=== PATIENT | female | born 1970 | race Caucasian/White ===

== ENCOUNTER 2018-04-04 21:15 | Emergency (ER) | payer MEDICAID ==
[~2018-04-04] VITALS: Ht 170.2 cm; Wt 72.7 kg
[~2018-04-04 21:15] MED LIST: ALBU8HFA PO; AMPH20TA20 PO; BAC10T PO; CLON-371 PO; CLON-529 PO; CYCL-1 PO; DIPH-423 PO; FURO-150 PO; GABA300C PO; GABA600T2 PO; IBUP-1986 PO; MILK200C4 PO; OMEP-84 PO; OMEPRAZOLE PO; POTA10TA19 PO; TRAM50TA2 PO
[2018-04-04 22:26] VITALS: BP 108/68
[2018-04-04] MEDS ORDERED: ibuprofen tablet 400 MG TABLET PO ONE (22:55)
[2018-04-04] MEDS ORDERED: LORazepam 1 MG tablet PO ONE (22:55)
[2018-04-04] MEDS ORDERED: LIDOcaine 1.5% w/epinephrine 1:200,000 5ml ampul IJ ONE (23:00)
[2018-04-04] MEDS ORDERED: LIDOcaine 1% w/epiNEPHrine 1:200,000 30ml vial IJ ONE (23:05)
[2018-04-04] MEDS ORDERED: SULF1TAB49 PO (23:20)
== END 2018-04-04 23:57 | disposition home or self-care (01) ==
LOC: ER 21:16
DX: L02.413 Cutaneous abscess of right upper limb (principal); L02.415 Cutaneous abscess of right lower limb; G89.29 Other chronic pain; F11.90 Opioid use, unspecified, uncomplicated; F17.200 Nicotine dependence, unspecified, uncomplicated; Z88.6 Allergy status to analgesic agent; Z88.8 Allergy status to other drugs, medicaments and biological substances; Z79.899 Other long term (current) drug therapy
CPT/HCPCS: 10061; 99284; J3490; 10060; 99283

== ENCOUNTER 2019-02-14 16:31 | Emergency (ER) | payer MEDICAID ==
[~2019-02-14] VITALS: Ht 170.2 cm; Wt 60.8 kg
[~2019-02-14 16:31] MED LIST changes: +GABA600T13 PO; -GABA600T2 PO; +LIDOcaine 1% W/epiNEPHrine 1:100,000 20ml vial ONE
--- NOTE | 2019-02-14 16:50 | NUR ---
Maylin carl in EDM - 02/14/19 at 1651 by LAURENT PT was brought from triage. Traci riddle to room patient began crying. When asked what was wrong, pt stated that she "made a stupid mistake" pt is still crying.
--- NOTE | 2019-02-14 17:04 | NUR ---
SET UP FOR I/D
[2019-02-14] MEDS ORDERED: CEPH-572 PO (17:37)
[2019-02-14] MEDS ORDERED: SULF1TAB49 PO (17:37)
[2019-02-14] MEDS ORDERED: IBUP-1985 PO (17:37)
[2019-02-14 17:55] VITALS: BP 117/71
== END 2019-02-14 17:56 | disposition home or self-care (01) ==
LOC: ER 16:31
DX: G89.29 Other chronic pain (principal); F11.90 Opioid use, unspecified, uncomplicated; Z88.5 Allergy status to narcotic agent; Z86.14 Personal history of Methicillin resistant Staphylococcus aureus infection; Z88.8 Allergy status to other drugs, medicaments and biological substances; Z79.2 Long term (current) use of antibiotics; Z79.899 Other long term (current) drug therapy
CPT/HCPCS: 10060; 99283

== ENCOUNTER 2019-02-23 22:29 | Emergency (ER) | payer MEDICAID ==
[~2019-02-23] VITALS: Ht 170.2 cm; Wt 52.3 kg
[~2019-02-23 22:29] MED LIST changes: +IBUP-1985 PO; -LIDOcaine 1% W/epiNEPHrine 1:100,000 20ml vial ONE
== END 2019-02-24 00:21 | disposition home or self-care (01) ==
LOC: ER 22:29
DX: L02.31 Cutaneous abscess of buttock (principal); G89.29 Other chronic pain; F11.90 Opioid use, unspecified, uncomplicated; Z86.14 Personal history of Methicillin resistant Staphylococcus aureus infection; Z88.6 Allergy status to analgesic agent; Z88.5 Allergy status to narcotic agent; Z88.8 Allergy status to other drugs, medicaments and biological substances; Z79.899 Other long term (current) drug therapy
CPT/HCPCS: 99281

== ENCOUNTER 2019-04-05 04:34 | Emergency (ER) | payer MEDICAID ==
[~2019-04-05] VITALS: Ht 170.2 cm; Wt 63.6 kg
[2019-04-05] MEDS ORDERED: TOLN30CR TOP (04:58)
[2019-04-05] MEDS ORDERED: OMEP-297 PO (04:58)
[2019-04-05] MEDS ORDERED: ibuprofen tablet 400 MG TABLET PO ONE (05:00)
[2019-04-05 05:08] VITALS: BP 115/73
== END 2019-04-05 05:12 | disposition home or self-care (01) ==
LOC: ER 04:34
DX: B35.3 Tinea pedis (principal); G89.29 Other chronic pain; K21.9 Gastro-esophageal reflux disease without esophagitis; F11.90 Opioid use, unspecified, uncomplicated; Z86.14 Personal history of Methicillin resistant Staphylococcus aureus infection; Z88.5 Allergy status to narcotic agent; Z88.6 Allergy status to analgesic agent; Z88.8 Allergy status to other drugs, medicaments and biological substances; Z79.899 Other long term (current) drug therapy
CPT/HCPCS: 99282

== ENCOUNTER 2019-11-24 11:41 | Inpatient (IN) | payer MEDICAID ==
[~2019-11-24] VITALS: Ht 170.2 cm; Wt 63.6 kg
[~2019-11-24 11:41] MED LIST changes: +OMEP20CA15 PO; +TOLN30CR TOP
--- NOTE | 2019-11-24 12:00 | NUR ---
assisted pt into gown. small baggie of brown paste like substance fell out of bra. baggie given to [employer] officer
[2019-11-24] MEDS ORDERED: normal saline 1000ML IV soln IVB ONE (12:05)
[2019-11-24 13:07] LABS: HEMOGLOBIN 11.1 g/dl (12.0-16.0); MEAN PLATELET VOLUME 8.9 FL (7.4-10.4); MONOCYTES # (AUTO) 0.4 X10'3 (0-0.9)
[2019-11-24 13:08] LABS: BASOPHILS # (AUTO) 0.1 X10'3 (0-0.2); BASOPHILS % (AUTO) 0.3 % (0-1); EOSINOPHILS % (AUTO) 0.2 % (0-6); HEMATOCRIT 33.1 % (35.0-45.0); LYMPHOCYTES # (AUTO) 0.8 X10'3 (1.1-4.8); LYMPHOCYTES % (AUTO) 4.4 % (21-51); MEAN CORPUSCULAR HGB CONC 33.5 g/dL (33.0-36.5); MEAN CORPUSCULAR VOLUME 92.7 FL (78-98); NEUTROPHILS # (AUTO) 18.2 X10'3 (1.8-7.7); NEUTROPHILS % (AUTO) 93.1 % (42-75); PLATELET COUNT 172 X10'3 (140-440); RED BLOOD COUNT 3.57 X10'6 (4.20-5.60); WHITE BLOOD COUNT 19.5 X10'3 (4.5-11.0)
[2019-11-24] MEDS ORDERED: LORazepam 2 mg/ml vial IV ONE (13:15)
[2019-11-24 13:20] LABS: ALANINE AMINOTRANSFERASE 13 U/L (12-78); ALBUMIN 3.7 G/DL (3.4-5.0); ALBUMIN/GLOBULIN RATIO 0.8 (1.1-1.5); ALKALINE PHOSPHATASE 123 IU/L (46-116); ANION GAP 7 (8-16); ASPARTATE AMINO TRANSFERASE 21 U/L (10-37); BLOOD UREA NITROGEN 17 MG/DL (7-18); BUN/CREATININE RATIO 19.1 (6.6-38.0); CHLORIDE 103 MMOL/L (99-107); CREATININE 0.89 MG/DL (0.40-0.90); GLUCOSE 97 MG/DL (70-104); POTASSIUM 4.5 MMOL/L (3.5-5.1); SODIUM 140 MMOL/L (135-145); TOTAL CARBON DIOXIDE 29.7 MMOL/L (24-32); TOTAL PROTEIN 8.2 G/DL (6.4-8.2); eGFR 67 ML/MIN
[2019-11-24 13:48] LABS: PLATELET ESTIMATE NORMAL; TOTAL CELLS COUNTED 100; TOXIC VACUOLATION 2+
[2019-11-24] MEDS ORDERED: normal saline 1000ML IV soln IV ONE (14:00)
[2019-11-24] MEDS ORDERED: vancomycin/NS 1 GM ADD-VANTAGE 250 ML IV ONE (14:15)
[2019-11-24] MEDS ORDERED: ibuprofen 100 MG/5 ML oral susp PO ONE (14:50)
[2019-11-24] MEDS ORDERED: piperacillin/tazo 3.375gm/50ml 50 ML IV ONE (15:40)
[2019-11-24] MEDS ORDERED: OMEP40CA13 PO (15:55)
[2019-11-24] MEDS ORDERED: SPIR100T5 PO (16:05)
[2019-11-24] MEDS ORDERED: FURO40TA4 PO (16:05)
[2019-11-24] MEDS ORDERED: DULO60CA65 PO (16:05)
[2019-11-24 16:10] LABS: CLARITY,URINE CLEAR (Clear); COLOR,URINE YELLOW (Yellow); GLUCOSE, URINE NEGATIVE (Neg); KETONES,URINE TRACE mg/dl (Neg); LEUKOCYTE ESTERASE ,URINE NEGATIVE (Neg); NITRITES, URINE NEGATIVE (Neg); OCCULT BLOOD,URINE NEGATIVE (Neg); PROTEIN,URINE NEGATIVE (Neg); UROBILINOGEN,URINE >=8.0 E.U/dL (0.2-1.0)
[2019-11-24 16:11] LABS: UA COLLECTION TYPE FOLEY CATH
[2019-11-24] MEDS ORDERED: magnesium Cl slow-release 64mg tablet PO PRN (16:25)
[2019-11-24] MEDS ORDERED: ondansetron/PF 4mg/2ml inj IV PRN (16:25)
[2019-11-24] MEDS ORDERED: magnesium 2GM in 50ml NS 50 ML IV PRN (16:25)
[2019-11-24] MEDS ORDERED: potassium Cl 20 mEq SR tablet PO PRN (16:25)
[2019-11-24] MEDS ORDERED: LORazepam 2 mg/ml vial IV PRN (16:25)
[2019-11-24] MEDS ORDERED: LORazepam 1 MG tablet PO PRN (16:25)
[2019-11-24] MEDS ORDERED: magnesium 4gm in 100ml NS 100 ML IV PRN (16:25)
[2019-11-24] MEDS ORDERED: acetaminophen 325mg tablet PO PRN (16:25)
[2019-11-24] MEDS ORDERED: potassium CL 10mEq/100ml bag 100 ML IV PRN ×2 (16:25)
[2019-11-24] MEDS ORDERED: dextrose 50%-water 50ml dispensing syringe IV PRN (16:25)
[2019-11-24] MEDS: normal saline 1000ml 1,000 ML IV SCH (18:01)
[2019-11-24 19:02] LABS: URINE AMPHETAMINE SCREEN POSITIVE (Neg); URINE BARBITUATE SCREEN NEGATIVE (Neg); URINE BENZODIAZEPINES SCREEN NEGATIVE (Neg); URINE CANNABINOID SCREEN NEGATIVE (Neg); URINE COCAINE SCREEN NEGATIVE (Neg); URINE METHADONE SCREEN POSITIVE (Neg); URINE OPIATE SCREEN POSITIVE (Neg); URINE PHENCYCLIDINE SCREEN NEGATIVE (Neg)
[2019-11-24 19:15] VITALS: BP 98/61
[2019-11-24] MEDS: heparin, porcine 5000 units/ml vial SQ SCH (19:40)
[2019-11-24] MEDS: K and/or MAG REPLACEMENT MC SCH (20:55)
[2019-11-24] MEDS ORDERED: temazepam 15mg capsule PO PRN (21:00)
[2019-11-24 22:00] VITALS: BP_SYST 123; BP_SYST 98; BP_DIAS 61; BP_DIAS 79
[2019-11-25] MEDS: piperacillin/tazo 3.375gm/50ml 50 ML IV SCH ×4 (00:13→18:43)
[2019-11-25] MEDS: normal saline 1000ml 1,000 ML IV SCH ×2 (00:14→09:14)
[2019-11-25 02:00] VITALS: BP 111/78
[2019-11-25] MEDS: vancomycin/NS 1 GM ADD-VANTAGE 250 ML IV SCH ×2 (04:13→16:25)
--- NOTE | 2019-11-25 05:11 | NUR ---
pt awake stating she wants something to drink, pt A&O to person and place, pt oriented to why she is in the hospital, pt educated about NPO status, IV fluids, ABX, and seo catheter. Pt unable to comprehend education and orientation, pt continued to ask for a drink, pt provided swabs for dry mouth. pt displays poor coping abilities.
[2019-11-25 06:00] VITALS: BP 123/67
[2019-11-25 06:14] LABS: ALANINE AMINOTRANSFERASE 22 U/L (12-78); ALBUMIN 2.9 G/DL (3.4-5.0); ALBUMIN/GLOBULIN RATIO 0.7 (1.1-1.5); ALKALINE PHOSPHATASE 98 IU/L (46-116); ANION GAP 9 (8-16); ASPARTATE AMINO TRANSFERASE 73 U/L (10-37); BILIRUBIN,TOTAL 1.2 MG/DL (0.1-1.0); BLOOD UREA NITROGEN 14 MG/DL (7-18); CALCIUM 8.1 MG/DL (8.5-10.1); CHLORIDE 105 MMOL/L (99-107); GLUCOSE 65 MG/DL (70-104); MAGNESIUM 1.7 MG/DL (1.5-2.4); POTASSIUM 3.6 MMOL/L (3.5-5.1); SODIUM 137 MMOL/L (135-145); TOTAL CARBON DIOXIDE 23.3 MMOL/L (24-32); TOTAL PROTEIN 6.9 G/DL (6.4-8.2); eGFR 88 ML/MIN
--- NOTE | 2019-11-25 06:18 | NUR ---
Problems reprioritized. Patient report given, questions answered & plan of care reviewed with Jordyn JEFFERSON.
--- NOTE | 2019-11-25 07:52 | NUR ---
DR. SCHROEDER PAGED: PAGER ID: [phone] MESSAGE: [id number]: STRAIN - FYI (+) blood cultures aerobic, L arm, gram + cocci pairs/chains Nurse Jordyn [id number]
[2019-11-25] MEDS: K and/or MAG REPLACEMENT MC SCH ×2 (08:00→20:00)
[2019-11-25 09:06] LABS: BASOPHILS % (AUTO) 0.2 % (0-1); EOSINOPHILS % (AUTO) 0.1 % (0-6); HEMATOCRIT 32.7 % (35.0-45.0); HEMOGLOBIN 10.9 g/dl (12.0-16.0); LYMPHOCYTES # (AUTO) 1.4 X10'3 (1.1-4.8); LYMPHOCYTES % (AUTO) 9.8 % (21-51); MEAN CORPUSCULAR HEMOGLOBIN 31.9 PG (27.0-31.0); MEAN CORPUSCULAR HGB CONC 33.4 g/dL (33.0-36.5); MEAN CORPUSCULAR VOLUME 95.5 FL (78-98); MEAN PLATELET VOLUME 9.4 FL (7.4-10.4); MONOCYTES # (AUTO) 0.5 X10'3 (0-0.9); MONOCYTES % (AUTO) 3.6 % (2-12); NEUTROPHILS # (AUTO) 12.5 X10'3 (1.8-7.7); NEUTROPHILS % (AUTO) 86.3 % (42-75); PLATELET COUNT 120 X10'3 (140-440); RED BLOOD COUNT 3.42 X10'6 (4.20-5.60); WHITE BLOOD COUNT 14.4 X10'3 (4.5-11.0)
[2019-11-25] MEDS: heparin, porcine 5000 units/ml vial SQ SCH ×2 (09:17→20:39)
--- NOTE | 2019-11-25 09:50 | NUR ---
Pt with a low Tk of 12. Per physical assessment pt with RLE 3+ and LLE 1+ edema however skin intact. No nutrition intervention warranted at this time. Will continue to follow. Addendum: 11/25/19 at [address] Amended: Links added.
--- NOTE | 2019-11-25 10:51 | NUR ---
Page: To Juan R ROLLE PAGER ID: [phone] MESSAGE: Modesto Christopher [id number] [employer] [address] would like you to contact Dr. De Guzman regarding the Covid Lab order, Also she is now awake and wishes to leave the hospital.
[2019-11-25 11:00] VITALS: BP 123/67
[2019-11-25] MEDS: dextrose 5%-normal saline 1,000 ML IV SCH ×2 (12:10→20:39)
[2019-11-25 13:13] LABS: ETHANOL < 0.010 GM/DL (0.0-0.010)
[2019-11-25 13:52] LABS: HIV ANTIBODY 1&2 RAPID NON-REACTIVE (Neg)
[2019-11-25 15:00] VITALS: BP 113/71
[2019-11-25] MEDS ORDERED: thiamine 100mg/ml 2ml inj. IV ONE (15:50)
[2019-11-25] MEDS ORDERED: folic acid 1mg tablet PO ONE (15:50)
[2019-11-25] MEDS ORDERED: LORazepam 2 mg/ml vial IV PRN (15:55)
[2019-11-25] MEDS ORDERED: haloperidol lactate 5mg/ml inj IM PRN (15:55)
[2019-11-25] MEDS ORDERED: haloperidol 5mg tablet PO PRN (15:55)
[2019-11-25 16:19] LABS: PREOP URINE HCG NEGATIVE (NEGATIVE)
[2019-11-25] MEDS ORDERED: thiamine inj. 100 MG in normal saline 100ml IV soln 99 ML IV ONE (16:30)
--- NOTE | 2019-11-25 18:15 | NUR ---
Patient in room PCU 3025. I have received report from LI Cobb and had the opportunity to ask questions and assume patient care.
[2019-11-25] MEDS: lactobacillus rhamnosus 10,000 MMU CELLS/CAPSULE PO SCH (20:40)
--- NOTE | 2019-11-25 21:06 | NUR ---
Sent to [facility] PAGER ID: [phone] MESSAGE: [id number] Candi Angeles: Sorry to bother you , patient is demanding to see you about her diet. She wants to eat. If you would like to please come explain to her. She is cursing at me very upset. Thank you, Pat [phone]
[2019-11-25 22:10] VITALS: BP 117/73
[2019-11-26 01:41] VITALS: BP 106/79
[2019-11-26] MEDS: piperacillin/tazo 3.375gm/50ml 50 ML IV SCH ×3 (01:45→16:15)
[2019-11-26] MEDS ORDERED: VANCOMYCIN LEVEL IV ONE (03:30)
[2019-11-26 04:01] LABS: ALANINE AMINOTRANSFERASE 21 U/L (12-78); ALBUMIN 2.2 G/DL (3.4-5.0); ALBUMIN/GLOBULIN RATIO 0.5 (1.1-1.5); ALKALINE PHOSPHATASE 78 IU/L (46-116); ANION GAP 6 (8-16); ASPARTATE AMINO TRANSFERASE 57 U/L (10-37); BASOPHILS % (AUTO) 0.1 % (0-1); BILIRUBIN,TOTAL 0.8 MG/DL (0.1-1.0); BLOOD UREA NITROGEN 10 MG/DL (7-18); BUN/CREATININE RATIO 16.4 (6.6-38.0); CALCIUM 7.8 MG/DL (8.5-10.1); CHLORIDE 105 MMOL/L (99-107); CREATININE 0.61 MG/DL (0.40-0.90); EOSINOPHILS # (AUTO) 0.1 X10'3 (0-0.9); EOSINOPHILS % (AUTO) 0.6 % (0-6); GLUCOSE 110 MG/DL (70-104); HEMATOCRIT 28.8 % (35.0-45.0); HEMOGLOBIN 9.8 g/dl (12.0-16.0); LYMPHOCYTES # (AUTO) 1.4 X10'3 (1.1-4.8); LYMPHOCYTES % (AUTO) 15.2 % (21-51); MAGNESIUM 1.6 MG/DL (1.5-2.4); MEAN CORPUSCULAR HEMOGLOBIN 31.8 PG (27.0-31.0); MEAN CORPUSCULAR VOLUME 93.5 FL (78-98); MEAN PLATELET VOLUME 9.1 FL (7.4-10.4); MONOCYTES # (AUTO) 0.5 X10'3 (0-0.9); MONOCYTES % (AUTO) 5.2 % (2-12); NEUTROPHILS # (AUTO) 7.2 X10'3 (1.8-7.7); NEUTROPHILS % (AUTO) 78.9 % (42-75); PLATELET COUNT 122 X10'3 (140-440); POTASSIUM 3.1 MMOL/L (3.5-5.1); RED BLOOD COUNT 3.08 X10'6 (4.20-5.60); RED CELL DISTRIBUTION WIDTH 13.2 % (11.5-14.5); SODIUM 136 MMOL/L (135-145); TOTAL CARBON DIOXIDE 24.7 MMOL/L (24-32); TOTAL PROTEIN 6.3 G/DL (6.4-8.2); VANCOMYCIN,TROUGH 5.5 UG/ML (6.0-14.0); WHITE BLOOD COUNT 9.1 X10'3 (4.5-11.0); eGFR > 90 ML/MIN
[2019-11-26] MEDS: vancomycin/NS 1 GM ADD-VANTAGE 250 ML IV SCH (04:17)
[2019-11-26] MEDS: dextrose 5%-normal saline 1,000 ML IV SCH ×3 (04:18→17:23)
[2019-11-26] MEDS: potassium Cl 20 mEq SR tablet PO PRN ×3 (05:26→17:22)
[2019-11-26 06:00] VITALS: BP 117/84
--- NOTE | 2019-11-26 06:10 | NUR ---
Problems reprioritized. Patient report given, questions answered & plan of care reviewed with LI Cobb.
[2019-11-26] MEDS: LORazepam 1 MG tablet PO PRN ×2 (07:09→15:21)
[2019-11-26] MEDS: K and/or MAG REPLACEMENT MC SCH ×2 (08:00→20:00)
[2019-11-26] MEDS ORDERED: folic acid 1mg tablet PO SCH (08:00)
[2019-11-26] MEDS: lactobacillus rhamnosus 10,000 MMU CELLS/CAPSULE PO SCH ×2 (08:18→20:24)
[2019-11-26] MEDS: heparin, porcine 5000 units/ml vial SQ SCH ×2 (08:18→20:24)
[2019-11-26] MEDS: thiamine 100mg tablet PO SCH ×2 (08:18→20:24)
[2019-11-26 11:00] VITALS: BP 116/69
[2019-11-26 15:00] VITALS: BP 111/74
[2019-11-26] MEDS: VANCOMYCIN 1,500MG inj. 1,500 MG in normal saline 250ml IV soln 300 ML IV SCH (16:13)
[2019-11-26 18:00] VITALS: BP 112/79
--- NOTE | 2019-11-26 19:02 | NUR ---
Patient in room PCU 3025. I have received report from Jordyn JEFFERSON and had the opportunity to ask questions and assume patient care.
[2019-11-26 22:00] VITALS: BP 103/66
[2019-11-27] MEDS: piperacillin/tazo 3.375gm/50ml 50 ML IV SCH (00:02)
[2019-11-27 02:00] VITALS: BP 114/76
[2019-11-27] MEDS: VANCOMYCIN 1,500MG inj. 1,500 MG in normal saline 250ml IV soln 300 ML IV SCH (04:19)
[2019-11-27] MEDS: dextrose 5%-normal saline 1,000 ML IV SCH (04:23)
[2019-11-27 06:00] VITALS: BP 135/88
--- NOTE | 2019-11-27 06:27 | NUR ---
Problems reprioritized. Patient report given, questions answered & plan of care reviewed with Ericka JEFFERSON.
[2019-11-27 06:45] LABS: BASOPHILS # (AUTO) 0.1 X10'3 (0-0.2); BASOPHILS % (AUTO) 0.7 % (0-1); EOSINOPHILS # (AUTO) 0.1 X10'3 (0-0.9); EOSINOPHILS % (AUTO) 1.2 % (0-6); HEMATOCRIT 33.8 % (35.0-45.0); HEMOGLOBIN 11.7 g/dl (12.0-16.0); LYMPHOCYTES % (AUTO) 23.3 % (21-51); MEAN CORPUSCULAR HEMOGLOBIN 32.1 PG (27.0-31.0); MEAN CORPUSCULAR HGB CONC 34.5 g/dL (33.0-36.5); MEAN CORPUSCULAR VOLUME 92.9 FL (78-98); MEAN PLATELET VOLUME 9.3 FL (7.4-10.4); MONOCYTES # (AUTO) 0.5 X10'3 (0-0.9); MONOCYTES % (AUTO) 6.4 % (2-12); NEUTROPHILS # (AUTO) 5.8 X10'3 (1.8-7.7); NEUTROPHILS % (AUTO) 68.4 % (42-75); PLATELET COUNT 164 X10'3 (140-440); RED BLOOD COUNT 3.65 X10'6 (4.20-5.60); RED CELL DISTRIBUTION WIDTH 13.1 % (11.5-14.5); WHITE BLOOD COUNT 8.5 X10'3 (4.5-11.0)
[2019-11-27 06:56] LABS: ALANINE AMINOTRANSFERASE 15 U/L (12-78); ALBUMIN 2.4 G/DL (3.4-5.0); ALBUMIN/GLOBULIN RATIO 0.5 (1.1-1.5); ALKALINE PHOSPHATASE 82 IU/L (46-116); ANION GAP 11 (8-16); ASPARTATE AMINO TRANSFERASE 58 U/L (10-37); BILIRUBIN,TOTAL 0.6 MG/DL (0.1-1.0); BLOOD UREA NITROGEN 3 MG/DL (7-18); BUN/CREATININE RATIO 6.5 (6.6-38.0); CALCIUM 8.4 MG/DL (8.5-10.1); CHLORIDE 104 MMOL/L (99-107); CREATININE 0.46 MG/DL (0.40-0.90); GLUCOSE 82 MG/DL (70-104); MAGNESIUM 1.6 MG/DL (1.5-2.4); POTASSIUM 3.7 MMOL/L (3.5-5.1); SODIUM 136 MMOL/L (135-145); TOTAL CARBON DIOXIDE 21.1 MMOL/L (24-32); TOTAL PROTEIN 6.8 G/DL (6.4-8.2); eGFR > 90 ML/MIN
[2019-11-27] MEDS: K and/or MAG REPLACEMENT MC SCH (07:16)
--- NOTE | 2019-11-27 08:55 | NUR ---
Came out of room to get supplies for another patient, saw patient at charge desk. Patient wanted to go AMA, prior to her signing paper educated why she was here, and that she could get worst before better. Answered all patients questions and she decided AMA was her choice. AMA paper signed and both 20g taken out canula intact and patient tolerated well.
[2019-11-27] MEDS ORDERED: AMOX500C2 PO (14:56)
[2019-11-28] MEDS ORDERED: VANCOMYCIN LEVEL IV ONE (03:30)
== END 2019-11-27 08:45 | disposition left against medical advice (07) | DRG 720 ==
LOC: ER 11:42 → ED HOLD 16:23 → PCU 3S 19:15
PROVIDERS: ADMIT Internal Medicine; ATTEND Internal Medicine
DX: A41.9 Sepsis, unspecified organism (principal); F19.10 Other psychoactive substance abuse, uncomplicated; Z53.29 Procedure and treatment not carried out because of patient's decision for other reasons; G89.29 Other chronic pain; M54.9 Dorsalgia, unspecified
CPT/HCPCS: 36415; 70450; 71045; 80053; 80202; 80305; 80320; 81003; 81025; 83605; 83735; 84145; 84443; 85025; 85610; 86703; 87040; 87077; 87081; 87186; 87635; 93005; 93306; 93971; 96361; 96365; 96368; 96375; 99285; G0378; J1644; J2060; J2543; J3370; J3411; J7030; J7042; J7050

== ENCOUNTER 2019-11-27 11:26 | Emergency (ER) | payer MEDICAID ==
[~2019-11-27] VITALS: Ht 170.2 cm; Wt 65.9 kg
[~2019-11-27 11:26] MED LIST changes: -ALBU8HFA PO; -AMPH20TA20 PO; -BAC10T PO; -CLON-371 PO; -CLON-529 PO; -CYCL-1 PO; -DIPH-423 PO; +DULO60CA65 PO; -FURO-150 PO; +FURO40TA4 PO; -GABA300C PO; -GABA600T13 PO; -IBUP-1985 PO; -MILK200C4 PO; -OMEP-84 PO; -OMEP20CA15 PO; +OMEP40CA13 PO; -OMEPRAZOLE PO; -POTA10TA19 PO; +SPIR100T5 PO; -TOLN30CR TOP; -TRAM50TA2 PO
[2019-11-27 11:34] VITALS: BP 115/82
[2019-11-27] MEDS ORDERED: piperacillin/tazo 3.375gm/50ml 50 ML IV ONE (11:40)
[2019-11-27] MEDS ORDERED: normal saline 1000ML IV soln IV ONE (11:40)
[2019-11-27] MEDS ORDERED: vancomycin/NS 1 GM ADD-VANTAGE 250 ML IV ONE (11:40)
[2019-11-27] MEDS ORDERED: ampicillin inj 1 GM in normal saline 100ml IV soln 100 ML IV STA (11:45)
[2019-11-27 14:32] LABS: BASOPHILS % (AUTO) 0.3 % (0-1); EOSINOPHILS # (AUTO) 0.1 X10'3 (0-0.9); EOSINOPHILS % (AUTO) 1.3 % (0-6); HEMATOCRIT 31.7 % (35.0-45.0); HEMOGLOBIN 10.8 g/dl (12.0-16.0); LYMPHOCYTES # (AUTO) 1.8 X10'3 (1.1-4.8); LYMPHOCYTES % (AUTO) 25.9 % (21-51); MEAN CORPUSCULAR HEMOGLOBIN 31.4 PG (27.0-31.0); MEAN CORPUSCULAR HGB CONC 33.9 g/dL (33.0-36.5); MEAN CORPUSCULAR VOLUME 92.7 FL (78-98); MEAN PLATELET VOLUME 8.7 FL (7.4-10.4); MONOCYTES # (AUTO) 0.5 X10'3 (0-0.9); MONOCYTES % (AUTO) 7.7 % (2-12); NEUTROPHILS # (AUTO) 4.6 X10'3 (1.8-7.7); NEUTROPHILS % (AUTO) 64.8 % (42-75); PLATELET COUNT 167 X10'3 (140-440); RED BLOOD COUNT 3.42 X10'6 (4.20-5.60); RED CELL DISTRIBUTION WIDTH 12.9 % (11.5-14.5); WHITE BLOOD COUNT 7.1 X10'3 (4.5-11.0)
[2019-11-27 14:42] LABS: ALANINE AMINOTRANSFERASE 19 U/L (12-78); ALBUMIN 2.5 G/DL (3.4-5.0); ALBUMIN/GLOBULIN RATIO 0.6 (1.1-1.5); ANION GAP 4 (8-16); ASPARTATE AMINO TRANSFERASE 52 U/L (10-37); BILIRUBIN,TOTAL 0.6 MG/DL (0.1-1.0); BLOOD UREA NITROGEN 4 MG/DL (7-18); BUN/CREATININE RATIO 7.3 (6.6-38.0); CALCIUM 8.4 MG/DL (8.5-10.1); CHLORIDE 105 MMOL/L (99-107); CREATININE 0.55 MG/DL (0.40-0.90); GLUCOSE 84 MG/DL (70-104); POTASSIUM 3.7 MMOL/L (3.5-5.1); SODIUM 134 MMOL/L (135-145); TOTAL CARBON DIOXIDE 24.8 MMOL/L (24-32); TOTAL PROTEIN 6.9 G/DL (6.4-8.2); eGFR > 90 ML/MIN
[2019-11-27] MEDS ORDERED: AMOX500C2 PO (14:56)
[2019-11-27 14:58] LABS: ALKALINE PHOSPHATASE 80 IU/L (46-116); ETHANOL < 0.010 GM/DL (0.0-0.010)
[2019-11-27] MEDS ORDERED: penicillin G benzathine 1.2 million unit/2ml syringe IM ONE (15:45)
--- NOTE | 2019-11-27 15:45 | NUR ---
STAFF HAS ATTEMPTED NUMEROUS TIMES TO START PERIPHERAL IV, INCLUDING USE OF US. PATIENT WILL BE GIVEN IM ANTIBIOTIC ORDERED PER PROVIDER.
[2019-11-27 16:01] LABS: URINE AMPHETAMINE SCREEN POSITIVE (Neg); URINE BARBITUATE SCREEN NEGATIVE (Neg); URINE BENZODIAZEPINES SCREEN NEGATIVE (Neg); URINE CANNABINOID SCREEN NEGATIVE (Neg); URINE COCAINE SCREEN NEGATIVE (Neg); URINE METHADONE SCREEN POSITIVE (Neg); URINE OPIATE SCREEN POSITIVE (Neg); URINE PHENCYCLIDINE SCREEN NEGATIVE (Neg)
== END 2019-11-27 16:36 | disposition home or self-care (01) ==
LOC: ER 11:26
DX: L03.115 Cellulitis of right lower limb (principal); F19.10 Other psychoactive substance abuse, uncomplicated; G89.29 Other chronic pain; F15.90 Other stimulant use, unspecified, uncomplicated; F11.90 Opioid use, unspecified, uncomplicated; Z86.14 Personal history of Methicillin resistant Staphylococcus aureus infection; Z88.5 Allergy status to narcotic agent; Z88.8 Allergy status to other drugs, medicaments and biological substances; Z79.899 Other long term (current) drug therapy
CPT/HCPCS: 36415; 71045; 80053; 80305; 80320; 83605; 84145; 84443; 85025; 87040; 93005; 96372; 99291; J0561

== ENCOUNTER 2020-09-06 15:56 | Emergency (ER) | payer MEDICAID ==
[~2020-09-06] VITALS: Ht 170.2 cm; Wt 65.9 kg
[2020-09-06 16:33] VITALS: BP 108/68
== END 2020-09-06 17:17 | disposition home or self-care (01) ==
LOC: ER 15:56
DX: Z02.89 Encounter for other administrative examinations (principal); G89.29 Other chronic pain; F15.90 Other stimulant use, unspecified, uncomplicated; F11.90 Opioid use, unspecified, uncomplicated; Z86.14 Personal history of Methicillin resistant Staphylococcus aureus infection; Z88.5 Allergy status to narcotic agent; Z88.8 Allergy status to other drugs, medicaments and biological substances; Z79.899 Other long term (current) drug therapy
CPT/HCPCS: 99281

== ENCOUNTER 2020-10-10 10:52 | Emergency (ER) | payer MEDICAID ==
[~2020-10-10] VITALS: Ht 170.2 cm; Wt 76.0 kg
[~2020-10-10 10:52] MED LIST changes: -OMEP40CA13 PO; +OMEP40CA21 PO
[2020-10-10 11:04] VITALS: BP 113/75
--- NOTE | 2020-10-10 11:14 | NUR ---
relieving RN for break, pt c/o tooth pain x1 day, needs filling on broken tooth and rt foot pain with ambulation x4-5 days, h/o cellulitis to left lower leg one year ago, +pitting edema, +1, +cms to rt foot, pt is resting quietly on gurney waiting for evaluation
--- NOTE | 2020-10-10 11:19 | NUR ---
xray at bedside
[2020-10-10] MEDS ORDERED: PENI500T2 PO (11:44)
== END 2020-10-10 12:30 | disposition home or self-care (01) ==
LOC: ER 10:52
DX: K04.7 Periapical abscess without sinus (principal); M96.89 Other intraoperative and postprocedural complications and disorders of the musculoskeletal system; M25.571 Pain in right ankle and joints of right foot; G89.29 Other chronic pain; F15.90 Other stimulant use, unspecified, uncomplicated; F11.90 Opioid use, unspecified, uncomplicated; Z86.14 Personal history of Methicillin resistant Staphylococcus aureus infection; Z88.5 Allergy status to narcotic agent; Z88.8 Allergy status to other drugs, medicaments and biological substances; Z79.899 Other long term (current) drug therapy; Z79.2 Long term (current) use of antibiotics
CPT/HCPCS: 73630; 99283

== ENCOUNTER 2020-10-26 17:18 | Emergency (ER) | payer MEDICAID ==
[~2020-10-26] VITALS: Ht 170.2 cm; Wt 68.2 kg
[2020-10-26 17:51] VITALS: BP 114/83
--- NOTE | 2020-10-26 20:44 | NUR ---
PER SECURITY PT IS BEING DISRUPTIVE IN LOBBY. HAS DEFICATED ON THE FLOOR AND IS PUNCHING THE WALL. SHE HAS BEEN ASKED TO BEHAVE HERSELF AND IS NOT ABLE TO DO SO. [employer] HAS BEEN CALLED.
== END 2020-10-26 22:33 | disposition left against medical advice (07) ==
LOC: ER 17:21
DX: R45.1 Restlessness and agitation (principal); Z53.21 Procedure and treatment not carried out due to patient leaving prior to being seen by health care provider

== ENCOUNTER 2020-12-31 00:09 | Emergency (ER) | payer MEDICAID ==
[~2020-12-31] VITALS: Ht 170.2 cm; Wt 57.7 kg
[2020-12-31 00:16] VITALS: BP 108/72
--- NOTE | 2020-12-31 01:04 | NUR ---
Patient was seen leaving lobby.
--- NOTE | 2020-12-31 03:01 | NUR ---
Patient no longer in lobby- called with no response.
[2021-01-01] MEDS ORDERED: DOXY100C43 PO (07:29)
== END 2020-12-31 03:15 | disposition left against medical advice (07) ==
LOC: ER 00:10
DX: R51.9 Headache, unspecified (principal); Z53.21 Procedure and treatment not carried out due to patient leaving prior to being seen by health care provider

== ENCOUNTER 2021-01-01 06:47 | Emergency (ER) | payer MEDICAID ==
[~2021-01-01] VITALS: Ht 170.2 cm; Wt 66.4 kg
[2021-01-01 06:54] VITALS: BP 117/83
[2021-01-01] MEDS ORDERED: DOXY100C43 PO (07:29)
--- NOTE | 2021-01-01 08:00 | NUR ---
rn alex at bedside taking care of pt .paulo swab with the rn.
== END 2021-01-01 08:12 | disposition home or self-care (01) ==
LOC: ER 06:48
DX: U07.1 COVID-19 (principal); L03.115 Cellulitis of right lower limb; R09.81 Nasal congestion; R07.89 Other chest pain; J34.89 Other specified disorders of nose and nasal sinuses; G89.29 Other chronic pain; F15.90 Other stimulant use, unspecified, uncomplicated; F11.90 Opioid use, unspecified, uncomplicated; Z88.5 Allergy status to narcotic agent; Z86.14 Personal history of Methicillin resistant Staphylococcus aureus infection; Z88.8 Allergy status to other drugs, medicaments and biological substances; Z79.2 Long term (current) use of antibiotics; Z79.899 Other long term (current) drug therapy
CPT/HCPCS: 36415; 93005; 99284; U0003; U0005

== ENCOUNTER 2021-03-25 10:37 | Emergency (ER) | payer MEDICAID ==
[~2021-03-25] VITALS: Ht 170.2 cm; Wt 61.4 kg
[2021-03-25 11:44] VITALS: BP 114/81
[2021-03-25] MEDS ORDERED: NALO4SPR BOTHNARES (12:06)
[2021-03-25] MEDS ORDERED: PENI250T2 PO (12:25)
--- NOTE | 2021-03-25 12:27 | NUR ---
Pt ambulated without assistance greater than 100'. aware.
== END 2021-03-25 12:39 | disposition home or self-care (01) ==
LOC: ER 10:37
DX: T43.621A Poisoning by amphetamines, accidental (unintentional), initial encounter (principal); R40.4 Transient alteration of awareness; K04.7 Periapical abscess without sinus; G89.29 Other chronic pain; F17.200 Nicotine dependence, unspecified, uncomplicated; Z86.19 Personal history of other infectious and parasitic diseases; Z86.14 Personal history of Methicillin resistant Staphylococcus aureus infection; F15.90 Other stimulant use, unspecified, uncomplicated; F11.90 Opioid use, unspecified, uncomplicated; Z88.8 Allergy status to other drugs, medicaments and biological substances; Z79.2 Long term (current) use of antibiotics; Z79.899 Other long term (current) drug therapy; Y92.89 Other specified places as the place of occurrence of the external cause
CPT/HCPCS: 99283

== ENCOUNTER 2021-03-30 10:53 | Inpatient (IN) | payer MEDICAID ==
[~2021-03-30] VITALS: Ht 170.2 cm; Wt 61.0 kg
[~2021-03-30 10:53] MED LIST changes: +NALO4SPR BOTHNARES; +PENI250T2 PO
[2021-03-30] MEDS ORDERED: normal saline 1000ML IV soln IVB ONE (11:20)
--- NOTE | 2021-03-30 11:40 | NUR ---
Pt is a very difficult IV start. IV drug use history.
[2021-03-30 12:41] LABS: BASOPHILS % (AUTO) 0.3 % (0-1); EOSINOPHILS # (AUTO) 0.2 X10'3 (0-0.9); EOSINOPHILS % (AUTO) 3.5 % (0-6); HEMATOCRIT 30.4 % (35.0-45.0); HEMOGLOBIN 10.6 g/dl (12.0-16.0); LYMPHOCYTES # (AUTO) 0.9 X10'3 (1.1-4.8); LYMPHOCYTES % (AUTO) 13.5 % (21-51); MEAN CORPUSCULAR HEMOGLOBIN 32.6 PG (27.0-31.0); MEAN CORPUSCULAR HGB CONC 34.8 g/dL (33.0-36.5); MEAN CORPUSCULAR VOLUME 93.8 FL (78-98); MEAN PLATELET VOLUME 8.5 FL (7.4-10.4); MONOCYTES # (AUTO) 0.5 X10'3 (0-0.9); MONOCYTES % (AUTO) 7.6 % (2-12); NEUTROPHILS # (AUTO) 4.8 X10'3 (1.8-7.7); NEUTROPHILS % (AUTO) 75.1 % (42-75); PLATELET COUNT 213 X10'3 (140-440); RED BLOOD COUNT 3.25 X10'6 (4.20-5.60); RED CELL DISTRIBUTION WIDTH 14.2 % (11.5-14.5); WHITE BLOOD COUNT 6.4 X10'3 (4.5-11.0)
[2021-03-30 12:51] LABS: PARTIAL THROMBOPLASTIN TIME 25 SECONDS (22-32)
[2021-03-30 13:47] LABS: ALANINE AMINOTRANSFERASE 21 U/L (12-78); ALBUMIN 3.2 G/DL (3.4-5.0); ALBUMIN/GLOBULIN RATIO 0.9 (1.1-1.5); ALKALINE PHOSPHATASE 91 IU/L (46-116); ANION GAP 8 (8-16); ASPARTATE AMINO TRANSFERASE 23 U/L (10-37); BILIRUBIN,TOTAL 0.6 MG/DL (0.1-1.0); BLOOD UREA NITROGEN 18 MG/DL (7-18); BUN/CREATININE RATIO 26.5 (6.6-38.0); CALCIUM 8.4 MG/DL (8.5-10.1); CHLORIDE 107 MMOL/L (99-107); CREATININE 0.68 MG/DL (0.40-0.90); GLUCOSE 105 MG/DL (70-104); POTASSIUM 3.9 MMOL/L (3.5-5.1); SODIUM 144 MMOL/L (135-145); TOTAL CARBON DIOXIDE 28.6 MMOL/L (24-32); TOTAL PROTEIN 6.8 G/DL (6.4-8.2); eGFR > 90 ML/MIN
[2021-03-30] MEDS ORDERED: iohexol 350MG/ML 100ml bottle IV ONE (13:54)
[2021-03-30 13:59] LABS: CREATINE KINASE 73 U/L (26-192); MAGNESIUM 2.1 MG/DL (1.5-2.4)
[2021-03-30] MEDS ORDERED: azithromycin/NS 500mg/250ml 250 ML IV ONE (16:45)
[2021-03-30] MEDS ORDERED: CefTRIAXone/D5W-Rocephin 1gm 50 ML IV ONE (16:45)
[2021-03-30] MEDS ORDERED: potassium CL 10mEq/100ml bag 100 ML IV PRN (17:25)
[2021-03-30] MEDS ORDERED: magnesium Cl slow-release 64mg tablet PO PRN (17:25)
[2021-03-30] MEDS ORDERED: magnesium hydroxide 30ml (MOM) UD suspension PO PRN (17:25)
[2021-03-30] MEDS: nicotine 14mg patch - 24hr TD SCH (17:25)
[2021-03-30] MEDS ORDERED: ondansetron/PF 4mg/2ml inj IV PRN (17:25)
[2021-03-30] MEDS ORDERED: mag hydrox/Alum hydrox/simeth 30ml oral suspension PO PRN (17:25)
[2021-03-30] MEDS ORDERED: ipratropium/albuterol 3ml nebule NEB PRN (17:25)
[2021-03-30] MEDS ORDERED: albuterol 2.5 MG/3 ML nebule NEB PRN (17:25)
[2021-03-30] MEDS ORDERED: magnesium 4gm in 100ml NS 100 ML IV PRN (17:25)
[2021-03-30] MEDS ORDERED: potassium Cl 20 mEq SR tablet PO PRN ×2 (17:25)
[2021-03-30] MEDS ORDERED: magnesium 2GM in 50ml NS 50 ML IV PRN (17:25)
[2021-03-30] MEDS ORDERED: PENI250T2 PO (17:36)
[2021-03-30] MEDS: K and/or MAG REPLACEMENT MC SCH (20:00)
[2021-03-30] MEDS: docusate sod 100mg capsule PO SCH (21:58)
[2021-03-30] MEDS: methylPREDNISolone sod succ 125mg/2ml vial IV SCH (21:59)
[2021-03-30] MEDS: enoxaparin 40mg/0.4ml syringe SQ SCH (21:59)
[2021-03-31] MEDS: piperacillin/tazo 4.5gm/100ml 100 ML IV SCH ×3 (00:01→16:25)
[2021-03-31 07:52] LABS: ALANINE AMINOTRANSFERASE 18 U/L (12-78); ALBUMIN 2.9 G/DL (3.4-5.0); ALBUMIN/GLOBULIN RATIO 0.7 (1.1-1.5); ALKALINE PHOSPHATASE 82 IU/L (46-116); ANION GAP 11 (8-16); ASPARTATE AMINO TRANSFERASE 18 U/L (10-37); BILIRUBIN,TOTAL 0.6 MG/DL (0.1-1.0); BLOOD UREA NITROGEN 15 MG/DL (7-18); BUN/CREATININE RATIO 26.3 (6.6-38.0); CALCIUM 8.3 MG/DL (8.5-10.1); CHLORIDE 105 MMOL/L (99-107); CREATININE 0.57 MG/DL (0.40-0.90); GLUCOSE 142 MG/DL (70-104); MAGNESIUM 1.9 MG/DL (1.5-2.4); POTASSIUM 3.6 MMOL/L (3.5-5.1); SODIUM 141 MMOL/L (135-145); TOTAL CARBON DIOXIDE 25.3 MMOL/L (24-32); TOTAL PROTEIN 6.8 G/DL (6.4-8.2); eGFR > 90 ML/MIN
[2021-03-31] MEDS: duloxetine 30mg CAPSULE.DR PO SCH (08:00)
[2021-03-31] MEDS: K and/or MAG REPLACEMENT MC SCH ×2 (08:00→20:00)
[2021-03-31] MEDS: docusate sod 100mg capsule PO SCH ×2 (08:33→22:33)
[2021-03-31] MEDS: pantoprazole 40mg Tablet.DR PO SCH (08:33)
[2021-03-31] MEDS: methylPREDNISolone sod succ 125mg/2ml vial IV SCH ×2 (08:34→22:33)
[2021-03-31] MEDS: nicotine 14mg patch - 24hr TD SCH (08:35)
[2021-03-31 09:56] LABS: BASOPHILS % (AUTO) 0.1 % (0-1); EOSINOPHILS % (AUTO) 0 % (0-6); HEMATOCRIT 33.9 % (35.0-45.0); HEMOGLOBIN 11.5 g/dl (12.0-16.0); LYMPHOCYTES # (AUTO) 0.8 X10'3 (1.1-4.8); MEAN CORPUSCULAR HEMOGLOBIN 32.1 PG (27.0-31.0); MEAN CORPUSCULAR HGB CONC 33.8 g/dL (33.0-36.5); MEAN CORPUSCULAR VOLUME 95.1 FL (78-98); MEAN PLATELET VOLUME 8.8 FL (7.4-10.4); MONOCYTES # (AUTO) 0.1 X10'3 (0-0.9); MONOCYTES % (AUTO) 1.3 % (2-12); NEUTROPHILS % (AUTO) 86.6 % (42-75); PLATELET COUNT 221 X10'3 (140-440); RED BLOOD COUNT 3.57 X10'6 (4.20-5.60); RED CELL DISTRIBUTION WIDTH 14.4 % (11.5-14.5); WHITE BLOOD COUNT 6.9 X10'3 (4.5-11.0)
--- NOTE | 2021-03-31 13:24 | NUR ---
HEART HEALTHY MEAL TRAY GIVEN TO PATIENT.
--- NOTE | 2021-03-31 13:48 | NUR ---
PAGED HOSPITALIST PER NURSE @[phone]
--- NOTE | 2021-03-31 14:35 | NUR ---
PAGED HOSPITALIST PER NURSE @[phone]
[2021-03-31] MEDS ORDERED: morphine 2 MG/ML inj. syringe IV ONE (14:45)
[2021-03-31 21:00] VITALS: BP 99/64
[2021-03-31] MEDS: lactobacillus rhamnosus 10,000 MMU CELLS/CAPSULE PO SCH (22:33)
[2021-03-31] MEDS: enoxaparin 40mg/0.4ml syringe SQ SCH (22:34)
[2021-04-01] VITALS: BP 96/61
[2021-04-01] MEDS ORDERED: ringers solution, lacted 1,000 ML IV ONE ×2 (00:35→00:40)
[2021-04-01] MEDS ORDERED: LORazepam 1 MG tablet PO PRN (00:40)
[2021-04-01] MEDS: piperacillin/tazo 4.5gm/100ml 100 ML IV SCH ×3 (00:52→16:00)
[2021-04-01 07:12] LABS: WHITE BLOOD COUNT 9.3 X10'3 (4.5-11.0)
[2021-04-01 07:13] LABS: HEMATOCRIT 31.9 % (35.0-45.0); HEMOGLOBIN 11.2 g/dl (12.0-16.0); MEAN CORPUSCULAR HEMOGLOBIN 33.3 PG (27.0-31.0); MEAN CORPUSCULAR HGB CONC 35.2 g/dL (33.0-36.5); MEAN CORPUSCULAR VOLUME 94.7 FL (78-98); MEAN PLATELET VOLUME 8.8 FL (7.4-10.4); PLATELET COUNT 197 X10'3 (140-440); RED BLOOD COUNT 3.37 X10'6 (4.20-5.60); RED CELL DISTRIBUTION WIDTH 13.9 % (11.5-14.5)
[2021-04-01 07:16] LABS: PLATELET ESTIMATE NORMAL; TOTAL CELLS COUNTED 100
[2021-04-01 07:20] VITALS: BP 112/71
[2021-04-01] MEDS ORDERED: normal saline 500ml IV soln 500 ML IV SCH (08:00)
[2021-04-01] MEDS: K and/or MAG REPLACEMENT MC SCH (08:00)
[2021-04-01] MEDS: duloxetine 30mg CAPSULE.DR PO SCH (08:05)
[2021-04-01] MEDS: docusate sod 100mg capsule PO SCH (08:05)
[2021-04-01] MEDS: lactobacillus rhamnosus 10,000 MMU CELLS/CAPSULE PO SCH (08:05)
[2021-04-01] MEDS: pantoprazole 40mg Tablet.DR PO SCH (08:05)
[2021-04-01] MEDS: ketorolac trometh. 30mg/ml inj. IV SCH ×2 (08:07→14:00)
[2021-04-01] MEDS: methylPREDNISolone sod succ 125mg/2ml vial IV SCH (08:08)
[2021-04-01] MEDS: nicotine 14mg patch - 24hr TD SCH (08:09)
[2021-04-01] MEDS ORDERED: pneumococcal 23-VAL P-sac vacc 25 mcg/0.5ml vial IMVAC ONE (10:00)
[2021-04-01] MEDS ORDERED: FLU VACC QS2021-22(6MOS UP)/PF 60 MCG/0.5 ML SYRINGE IM ONE (10:00)
[2021-04-01] MEDS ORDERED: PRED20TA PO (10:01)
[2021-04-01] MEDS ORDERED: AMOX-580 PO (10:01)
[2021-04-01] MEDS ORDERED: NICO-731 TD (10:01)
[2021-04-01 10:06] LABS: ASPARTATE AMINO TRANSFERASE 15 U/L (10-37); BILIRUBIN,TOTAL 0.4 MG/DL (0.1-1.0); BLOOD UREA NITROGEN 15 MG/DL (7-18); BUN/CREATININE RATIO 17.4 (6.6-38.0); CALCIUM 8.3 MG/DL (8.5-10.1); CHLORIDE 106 MMOL/L (99-107); CREATININE 0.86 MG/DL (0.40-0.90); GLUCOSE 215 MG/DL (70-104); POTASSIUM 3.1 MMOL/L (3.5-5.1); TOTAL CARBON DIOXIDE 23.8 MMOL/L (24-32); eGFR 69 ML/MIN
[2021-04-01 10:10] LABS: ANION GAP 10 (8-16); SODIUM 140 MMOL/L (135-145)
--- NOTE | 2021-04-01 10:51 | NUR ---
Met with patient in regards to substance use and to see if patient is interested in resources for treatment. Patient would like to go to a sober living facility. Patient stated that [employer] will pay for her to go to sober living. I gave patient the number for [facility] so she can call for inpatient treatment. I discussed with patient about possibly going to inpatient treatment first and then sober living afterwards.
[2021-04-01 11:06] LABS: ALANINE AMINOTRANSFERASE 19 U/L (12-78); ALBUMIN 2.8 G/DL (3.4-5.0); ALBUMIN/GLOBULIN RATIO 0.8 (1.1-1.5); ALKALINE PHOSPHATASE 73 IU/L (46-116); MAGNESIUM 1.8 MG/DL (1.5-2.4); TOTAL PROTEIN 6.5 G/DL (6.4-8.2)
--- NOTE | 2021-04-01 11:16 | NUR ---
Medications picked up from pharmacy and given to patient on discharge. 4 Medication bottles given (Penicilin, Duloxetine, Ibuprofen. Prilosec.)
--- NOTE | 2021-04-01 11:55 | NUR ---
PAGER ID: [phone] MESSAGE: [id number] K 3.1. Do you want it replaced before dc? Luci JEFFERSON [phone]
--- NOTE | 2021-04-01 11:55 | NUR ---
Patient discharged delayed, K will be replaced fully before discharging, orders received.
[2021-04-01] MEDS ORDERED: potassium Cl 20 mEq SR tablet PO STA (12:00)
--- NOTE | 2021-04-01 14:27 | NUR ---
Malnutrition consult: Pt admitted s/p overdose on heroin per EMR. Per MST pt reports 14-23lb wt loss and decreased appetite. Pt's wt hx fluctuates in EMR from 57kg-76kg since August of this year though current wt of 61kg not scaled this admit. No PO documentation though per RN pt able to eat well. Upon assessment pt was sleeping and did not wake to verbal cues. No visible signs of muscle or fat wasting on facial region observed at bedside but pt was mostly covered w/ blanket. Noted w/ R ankle 1+ trace edema. At this time pt does not meet minimum criteria for malnutrition. Will continue to monitor. Addendum: 04/01/21 at [address] Amended: Links added.
--- NOTE | 2021-04-01 16:16 | NUR ---
Patient VSS. Denies pain. Discharge paperwork reviewed with patient. Home medications sent with patient. IV removed, catheter intact. Isabelle called. Walked down by [place]. Safety maintained. 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 Requested taxi to be dropped off at [facility].
[2021-04-01] MEDS ORDERED: potassium Cl 20 mEq SR tablet PO ONE (16:30)
== END 2021-04-01 16:20 | disposition home or self-care (01) | DRG 816 ==
LOC: ER 10:54 → ED HOLD 17:29 → EDBEDREQ 03-31 19:52 → SUR 3N 03-31 20:10
PROVIDERS: ADMIT Family Medicine; ATTEND Family Medicine
PROC: B32T1ZZ Computerized Tomography (CT Scan) of Left Pulmonary Artery using Low Osmolar Contrast (ICD-10-PCS; 2021-03-30)
PROC: B3201ZZ Computerized Tomography (CT Scan) of Thoracic Aorta using Low Osmolar Contrast (ICD-10-PCS; 2021-03-30)
PROC: B32S1ZZ Computerized Tomography (CT Scan) of Right Pulmonary Artery using Low Osmolar Contrast (ICD-10-PCS; 2021-03-30)
PROC: 3E0234Z Introduction of Serum, Toxoid and Vaccine into Muscle, Percutaneous Approach (ICD-10-PCS; principal; 2021-04-01)
PROC: 3E02340 Introduction of Influenza Vaccine into Muscle, Percutaneous Approach (ICD-10-PCS; 2021-04-01)
DX: T40.1X1A Poisoning by heroin, accidental (unintentional), initial encounter (principal); J96.01 Acute respiratory failure with hypoxia; J69.0 Pneumonitis due to inhalation of food and vomit; G93.41 Metabolic encephalopathy; D64.9 Anemia, unspecified; E87.6 Hypokalemia; Z20.822 Contact with and (suspected) exposure to COVID-19; F11.10 Opioid abuse, uncomplicated; F17.210 Nicotine dependence, cigarettes, uncomplicated; K21.9 Gastro-esophageal reflux disease without esophagitis; F15.10 Other stimulant abuse, uncomplicated; Z66 Do not resuscitate; B19.20 Unspecified viral hepatitis C without hepatic coma; G89.29 Other chronic pain; M54.9 Dorsalgia, unspecified; Z23 Encounter for immunization; Z88.5 Allergy status to narcotic agent; Z88.8 Allergy status to other drugs, medicaments and biological substances; Y92.89 Other specified places as the place of occurrence of the external cause; Z79.899 Other long term (current) drug therapy; Z71.6 Tobacco abuse counseling; Z71.51 Drug abuse counseling and surveillance of drug abuser
CPT/HCPCS: 36415; 71045; 71275; 80053; 82550; 82553; 83735; 83880; 84484; 85007; 85025; 85379; 85610; 85730; 87081; 87502; 87503; 87635; 90732; 93005; 94760; 96361; 96365; 96368; 97110; 97161; 99285; G0378; J0456; J0696; J1650; J1885; J2270; J2543; J2930; J7030; J7120; Q9967

== ENCOUNTER 2021-10-01 11:48 | Emergency (ER) | payer MEDICAID ==
[~2021-10-01 11:48] MED LIST changes: -NALO4SPR BOTHNARES; +NICO-731 TD; -PENI250T2 PO; +PRED20TA PO
== END 2021-10-01 12:35 | disposition left against medical advice (07) ==
LOC: ER 11:48
DX: F19.10 Other psychoactive substance abuse, uncomplicated (principal); Z53.21 Procedure and treatment not carried out due to patient leaving prior to being seen by health care provider

== ENCOUNTER 2021-10-16 06:17 | Emergency (ER) | payer MEDICAID ==
[~2021-10-16] VITALS: Ht 170.2 cm; Wt 59.1 kg
[2021-10-16 06:43] VITALS: BP 131/83
== END 2021-10-16 08:37 | disposition home or self-care (01) ==
LOC: ER 06:18
DX: F11.20 Opioid dependence, uncomplicated (principal); F10.20 Alcohol dependence, uncomplicated; F15.90 Other stimulant use, unspecified, uncomplicated; G89.29 Other chronic pain; Z86.14 Personal history of Methicillin resistant Staphylococcus aureus infection; Z88.5 Allergy status to narcotic agent; Z88.8 Allergy status to other drugs, medicaments and biological substances; Z79.899 Other long term (current) drug therapy; Y90.0 Blood alcohol level of less than 20 mg/100 ml
CPT/HCPCS: 99281

== ENCOUNTER 2021-10-20 09:44 | Emergency (ER) | payer MEDICAID ==
[~2021-10-20] VITALS: Ht 170.2 cm; Wt 59.1 kg
[2021-10-20 10:18] VITALS: BP 112/75
[2021-10-20] MEDS ORDERED: ATI1T PO (13:41)
[2021-10-20] MEDS ORDERED: ONDA4TAB12 PO (13:41)
== END 2021-10-20 15:02 | disposition home or self-care (01) ==
LOC: ER 09:44
DX: F10.20 Alcohol dependence, uncomplicated (principal); F11.20 Opioid dependence, uncomplicated; F41.9 Anxiety disorder, unspecified; G89.29 Other chronic pain; F17.200 Nicotine dependence, unspecified, uncomplicated; Z86.14 Personal history of Methicillin resistant Staphylococcus aureus infection; F15.90 Other stimulant use, unspecified, uncomplicated; Z88.5 Allergy status to narcotic agent; Z88.8 Allergy status to other drugs, medicaments and biological substances; Z79.899 Other long term (current) drug therapy; Y90.0 Blood alcohol level of less than 20 mg/100 ml
CPT/HCPCS: 99283

== ENCOUNTER 2022-01-08 15:16 | Emergency (ER) | payer MEDICAID ==
[~2022-01-08] VITALS: Ht 170.2 cm; Wt 59.1 kg
[~2022-01-08 15:16] MED LIST changes: +ATI1T PO; +ONDA4TAB12 PO
[2022-01-08 15:32] VITALS: BP 133/96
[2022-01-08 19:15] LABS: BASOPHILS # (AUTO) 0.1 X10'3 (0-0.2); EOSINOPHILS # (AUTO) 0.2 X10'3 (0-0.9); HEMATOCRIT 36.4 % (35.0-45.0); MONOCYTES # (AUTO) 1.4 X10'3 (0-0.9)
[2022-01-08 19:17] LABS: BASOPHILS % (AUTO) 0.2 % (0-1); EOSINOPHILS % (AUTO) 0.9 % (0-6); HEMOGLOBIN 12.2 g/dl (12.0-16.0); LYMPHOCYTES # (AUTO) 2.5 X10'3 (1.1-4.8); LYMPHOCYTES % (AUTO) 12.4 % (21-51); MEAN CORPUSCULAR HEMOGLOBIN 32.1 PG (27.0-31.0); MEAN CORPUSCULAR HGB CONC 33.6 g/dL (33.0-36.5); MEAN CORPUSCULAR VOLUME 95.5 FL (78-98); MEAN PLATELET VOLUME 9.5 FL (7.4-10.4); MONOCYTES % (AUTO) 6.8 % (2-12); NEUTROPHILS % (AUTO) 79.7 % (42-75); PLATELET COUNT 247 X10'3 (140-440); RED BLOOD COUNT 3.81 X10'6 (4.20-5.60); RED CELL DISTRIBUTION WIDTH 13.5 % (11.5-14.5); WHITE BLOOD COUNT 20.1 X10'3 (4.5-11.0)
[2022-01-08 19:26] LABS: ALANINE AMINOTRANSFERASE 16 U/L (12-78); ALBUMIN 3.6 G/DL (3.4-5.0); ALBUMIN/GLOBULIN RATIO 0.6 (1.1-1.5); ALKALINE PHOSPHATASE 126 IU/L (46-116); ANION GAP 12 (8-16); ASPARTATE AMINO TRANSFERASE 18 U/L (10-37); BILIRUBIN,TOTAL 0.6 MG/DL (0.1-1.0); BLOOD UREA NITROGEN 20 MG/DL (7-18); BUN/CREATININE RATIO 29.9 (6.6-38.0); CALCIUM 9.4 MG/DL (8.5-10.1); CHLORIDE 98 MMOL/L (99-107); CREATININE 0.67 MG/DL (0.40-0.90); MAGNESIUM 1.8 MG/DL (1.5-2.4); POTASSIUM 3.6 MMOL/L (3.5-5.1); SODIUM 137 MMOL/L (135-145); TOTAL CARBON DIOXIDE 27.4 MMOL/L (24-32); TOTAL PROTEIN 9.2 G/DL (6.4-8.2); eGFR > 90 ML/MIN
[2022-01-08 19:40] LABS: GLUCOSE 131 MG/DL (70-104)
[2022-01-08 20:06] LABS: ANISOCYTOSIS 1+; PLATELET ESTIMATE NORMAL; TOTAL CELLS COUNTED 100
== END 2022-01-08 22:27 | disposition left against medical advice (07) ==
LOC: ER 15:16
DX: M79.604 Pain in right leg (principal); Z53.21 Procedure and treatment not carried out due to patient leaving prior to being seen by health care provider
CPT/HCPCS: 36415; 71045; 80053; 83605; 83735; 84145; 85007; 85025; 87040

== ENCOUNTER 2022-10-16 17:35 | Emergency (ER) | payer MEDICAID ==
[~2022-10-16] VITALS: Ht 170.2 cm; Wt 62.0 kg
[2022-10-16 17:58] VITALS: BP 130/87
== END 2022-10-16 21:00 | disposition left against medical advice (07) ==
LOC: ER 17:35
DX: M79.604 Pain in right leg (principal); Z53.21 Procedure and treatment not carried out due to patient leaving prior to being seen by health care provider
CPT/HCPCS: 99281

== ENCOUNTER 2022-11-28 06:12 | Emergency (ER) | payer MEDICAID ==
[~2022-11-28] VITALS: Ht 170.2 cm; Wt 61.4 kg
[2022-11-28 06:23] VITALS: TEMP 98.1
[2022-11-28] MEDS ORDERED: cephalexin 500mg capsule PO ONE (06:50)
[2022-11-28] MEDS ORDERED: sulfamethoxazole/trimethoprim DS (800/160mg) tablet PO ONE (06:50)
[2022-11-28] MEDS ORDERED: pantoprazole 40mg Tablet.DR PO ONE (07:30)
[2022-11-28] MEDS ORDERED: OMEP40CA21 PO (09:54)
[2022-11-28] MEDS ORDERED: CEPH-585 PO (09:54)
[2022-11-28] MEDS ORDERED: SULF1TAB49 PO (09:54)
[2022-11-28 10:05] VITALS: BP 103/72; PULSE 93; RESP 15; O2SAT 100
== END 2022-11-28 10:09 | disposition home or self-care (01) ==
LOC: ER 06:13
DX: S80.211A Abrasion, right knee, initial encounter (principal); S80.212A Abrasion, left knee, initial encounter; L03.115 Cellulitis of right lower limb; G89.29 Other chronic pain; F17.200 Nicotine dependence, unspecified, uncomplicated; F15.90 Other stimulant use, unspecified, uncomplicated; F11.90 Opioid use, unspecified, uncomplicated; Z72.89 Other problems related to lifestyle; Z86.14 Personal history of Methicillin resistant Staphylococcus aureus infection; Z88.8 Allergy status to other drugs, medicaments and biological substances; Z79.2 Long term (current) use of antibiotics; Z79.899 Other long term (current) drug therapy; W19.XXXA Unspecified fall, initial encounter; Z91.81 History of falling; Y93.89 Activity, other specified; Y92.89 Other specified places as the place of occurrence of the external cause; Y99.8 Other external cause status
CPT/HCPCS: 93971; 99284; A6449

== ENCOUNTER 2023-01-17 12:47 | Emergency (ER) | payer MEDICAID ==
[~2023-01-17] VITALS: Ht 170.2 cm; Wt 65.9 kg
[~2023-01-17 12:47] MED LIST changes: +CEPH-585 PO
[2023-01-17 12:51] VITALS: BP 119/82; PULSE 85; RESP 18; TEMP 97.9; O2SAT 98
[2023-01-17] MEDS ORDERED: CEPH500C2 PO (14:39)
[2023-01-17] MEDS ORDERED: SULF1TAB49 PO (14:39)
== END 2023-01-17 15:31 | disposition home or self-care (01) ==
LOC: ER 12:48
DX: L03.115 Cellulitis of right lower limb (principal); R22.41 Localized swelling, mass and lump, right lower limb; G89.29 Other chronic pain; F15.90 Other stimulant use, unspecified, uncomplicated; F11.90 Opioid use, unspecified, uncomplicated; Z72.89 Other problems related to lifestyle; Z86.14 Personal history of Methicillin resistant Staphylococcus aureus infection; Z79.899 Other long term (current) drug therapy; Z88.8 Allergy status to other drugs, medicaments and biological substances; Z79.2 Long term (current) use of antibiotics
CPT/HCPCS: 99283

== ENCOUNTER 2023-11-29 11:36 | Outpatient (CLI) | payer MEDICAID ==
[~2023-11-29 11:36] MED LIST changes: +ONDA-243 PO; -ONDA4TAB12 PO
== END 2023-11-29 23:59 | disposition home or self-care (01) ==
LOC: RAD 11:36
PROVIDERS: ATTEND General Practice
DX: K74.60 Unspecified cirrhosis of liver (principal)
CPT/HCPCS: 76700

== ENCOUNTER 2023-12-24 00:34 | Emergency (ER) | payer MEDICAID ==
[~2023-12-24] VITALS: Ht 167.6 cm; Wt 72.7 kg
[~2023-12-24 00:34] MED LIST changes: -CEPH-585 PO
[2023-12-24 02:10] VITALS: BP 169/86; PULSE 108; RESP 20; TEMP 98; O2SAT 98
== END 2023-12-24 02:13 ==
LOC: ER 00:34
DX: F15.90 Other stimulant use, unspecified, uncomplicated (principal); Z88.5 Allergy status to narcotic agent; Z79.1 Long term (current) use of non-steroidal anti-inflammatories (NSAID); Z79.899 Other long term (current) drug therapy
CPT/HCPCS: 99283